=== PATIENT | female | born 1960 | race Caucasian/White ===

== ENCOUNTER 2021-08-04 13:33 | Emergency (ER) | payer OTHER ==
[~2021-08-04] VITALS: Ht 152.4 cm; Wt 51.7 kg
[2021-08-04] MEDS ORDERED: TIROSINT88 MCG (13:55)
[2021-08-04] MEDS ORDERED: GAVISCON LIQUI355 ML (13:56)
== END 2021-08-04 18:36 | disposition home or self-care (01) ==
LOC: ER 13:33
DX: R00.2 Palpitations (principal); R07.9 Chest pain, unspecified; Z20.822 Contact with and (suspected) exposure to COVID-19